=== PATIENT | female | born 1940 | race Caucasian/White ===

== ENCOUNTER 2020-11-14 09:43 | Day surgery (SDCO) | payer MEDICARE, OTHER ==
[~2020-11-14] VITALS: Ht 160 cm; Wt 75.3 kg
[2020-11-14] MEDS ORDERED: COLACE100 MG PO (12:28)
[2020-11-14] MEDS ORDERED: XARELTO10 MG PO (12:29)
[2020-11-14] MEDS ORDERED: PERCOCET 5-3251 EACH PO (12:30)
[2020-11-14] MEDS ORDERED: ZOFRAN4 M1 PO (14:23)
[2020-11-14] MEDS ORDERED: ASPIRIN81 MG PO (14:24)
[2020-11-14] MEDS ORDERED: ACEBUTOLOL HCL200 MG PO (14:25)
[2020-11-14] MEDS ORDERED: HCTZ25 MG PO (14:26)
[2020-11-14] MEDS ORDERED: AVAPRO300 MG PO (14:27)
[2020-11-14] MEDS ORDERED: NITROQUIK SL0.4 MG SL (14:28)
[2020-11-15 06:43] LABS: EOSINOPHIL 4.4 % (0-7); HCT 29.5 % (37.0-47.0); HGB 9.5 g/dl (12.5-16.0); LYMPHOCYTE 23.7 % (15-48); MCH 31.7 pg (25.0-31.0); MCHC 32.2 g/dL (32.0-36.0); MCV 98.3 fL (78.0-100.0); MONOCYTE 11.5 % (0-12); MPV 10.2 fL (6.0-9.5); NEUTROPHIL 58.8 % (41-80); NRBC 0; PLT 316 K/uL (150-400); RDW 11.9 % (11.5-14.0); WBC 7.7 K/uL (4.0-10.5)
[2020-11-15 07:09] LABS: BUN/CREAT RATIO (CALC) 17.1 RATIO; CREATININE 0.76 mg/dL (0.51-0.95); POTASSIUM 4.3 mmol/L (3.5-5.1)
[2020-11-15] MEDS ORDERED: VIBRAMYCIN100 MG PO (10:56)
== END 2020-11-15 13:23 | disposition home health service (06) ==
LOC: FMS 09:43
PROVIDERS: ADMIT Allergy & Immunology Allergy
DX: G89.18 Other acute postprocedural pain (principal); I10 Essential (primary) hypertension; M19.90 Unspecified osteoarthritis, unspecified site; Z96.652 Presence of left artificial knee joint; Z79.891 Long term (current) use of opiate analgesic; Z79.899 Other long term (current) drug therapy
CPT/HCPCS: 36415; 80048; 85025; 97110; 97161; 97165; 97535; G0378; J0692